=== PATIENT | male | born 1970 | race African-American/Black ===

== ENCOUNTER 2021-02-08 09:57 | Outpatient (CLI) | payer SELFPAY | END 2021-02-08 09:58 | disposition home or self-care (01) | LOC: CSHWCC 09:57 | PROVIDERS: ATTEND Nurse Practitioner Family | DX: S98.921 Partial traumatic amputation of right foot, level unspecified (principal); T81.89XD Other complications of procedures, not elsewhere classified, subsequent encounter; E11.621 Type 2 diabetes mellitus with foot ulcer; L97.509 Non-pressure chronic ulcer of other part of unspecified foot with unspecified severity; D59.9 Acquired hemolytic anemia, unspecified; G90.09 Other idiopathic peripheral autonomic neuropathy; M72.6 Necrotizing fasciitis; M86.172 Other acute osteomyelitis, left ankle and foot | CPT/HCPCS: 29581; 97605; 99213; G0463 ==

== ENCOUNTER 2021-02-12 08:13 | Outpatient (CLI) | payer SELFPAY | END 2021-02-12 08:14 | disposition home or self-care (01) | LOC: CSHWCC 08:13 | PROVIDERS: ATTEND Nurse Practitioner Family | DX: S98.921 Partial traumatic amputation of right foot, level unspecified (principal); T81.89XD Other complications of procedures, not elsewhere classified, subsequent encounter; E11.621 Type 2 diabetes mellitus with foot ulcer; L97.509 Non-pressure chronic ulcer of other part of unspecified foot with unspecified severity; R60.0 Localized edema; G90.09 Other idiopathic peripheral autonomic neuropathy; M72.6 Necrotizing fasciitis; M86.172 Other acute osteomyelitis, left ankle and foot | CPT/HCPCS: 11042; 29581; 99213; G0463 ==

== ENCOUNTER 2021-02-15 13:27 | Outpatient (CLI) | payer SELFPAY | END 2021-02-15 13:28 | disposition home or self-care (01) | LOC: CSHWCC 13:27 | PROVIDERS: ATTEND Nurse Practitioner Family | DX: T81.89XD Other complications of procedures, not elsewhere classified, subsequent encounter (principal); S98.921 Partial traumatic amputation of right foot, level unspecified; E11.621 Type 2 diabetes mellitus with foot ulcer; L97.509 Non-pressure chronic ulcer of other part of unspecified foot with unspecified severity; E11.69 Type 2 diabetes mellitus with other specified complication; M86.172 Other acute osteomyelitis, left ankle and foot; R60.0 Localized edema; D59.9 Acquired hemolytic anemia, unspecified; G90.09 Other idiopathic peripheral autonomic neuropathy | CPT/HCPCS: 29581; 99212; G0463 ==

== ENCOUNTER 2021-02-19 14:43 | Outpatient (CLI) | payer SELFPAY | END 2021-02-19 14:44 | disposition home or self-care (01) | LOC: CSHWCC 14:43 | PROVIDERS: ATTEND Nurse Practitioner Family | DX: S98.921 Partial traumatic amputation of right foot, level unspecified (principal); T81.89XD Other complications of procedures, not elsewhere classified, subsequent encounter; E11.621 Type 2 diabetes mellitus with foot ulcer; L97.509 Non-pressure chronic ulcer of other part of unspecified foot with unspecified severity; R60.0 Localized edema; D59.9 Acquired hemolytic anemia, unspecified; G90.9 Disorder of the autonomic nervous system, unspecified; M72.6 Necrotizing fasciitis; M86.172 Other acute osteomyelitis, left ankle and foot | CPT/HCPCS: 29581; 99213; G0463 ==

== ENCOUNTER 2021-02-26 11:53 | Outpatient (CLI) | payer SELFPAY | END 2021-02-26 11:54 | disposition home or self-care (01) | LOC: CSHWCC 11:53 | PROVIDERS: ATTEND Nurse Practitioner Family | DX: T81.89XD Other complications of procedures, not elsewhere classified, subsequent encounter (principal); S98.921 Partial traumatic amputation of right foot, level unspecified; E11.621 Type 2 diabetes mellitus with foot ulcer; L97.509 Non-pressure chronic ulcer of other part of unspecified foot with unspecified severity; R60.0 Localized edema; D59.9 Acquired hemolytic anemia, unspecified; G90.09 Other idiopathic peripheral autonomic neuropathy; M72.6 Necrotizing fasciitis; E11.69 Type 2 diabetes mellitus with other specified complication; M86.172 Other acute osteomyelitis, left ankle and foot | CPT/HCPCS: 29581; 99213; G0463 ==

== ENCOUNTER 2021-03-01 09:33 | Outpatient (CLI) | payer SELFPAY | END 2021-03-01 09:34 | disposition home or self-care (01) | LOC: CSHWCC 09:33 | PROVIDERS: ATTEND Nurse Practitioner Family | DX: T81.89XA Other complications of procedures, not elsewhere classified, initial encounter (principal); R60.0 Localized edema; D59.9 Acquired hemolytic anemia, unspecified; E11.621 Type 2 diabetes mellitus with foot ulcer; G90.09 Other idiopathic peripheral autonomic neuropathy; M72.6 Necrotizing fasciitis; M86.172 Other acute osteomyelitis, left ankle and foot; S98.921A Partial traumatic amputation of right foot, level unspecified, initial encounter | CPT/HCPCS: 29581; 97605; 99213; G0463 ==

== ENCOUNTER 2021-03-05 11:26 | Outpatient (CLI) | payer OTHER, SELFPAY | END 2021-03-05 11:27 | disposition home or self-care (01) | LOC: CSHWCC 11:26 | PROVIDERS: ATTEND Nurse Practitioner Family | DX: T81.89XD Other complications of procedures, not elsewhere classified, subsequent encounter (principal); S98.921 Partial traumatic amputation of right foot, level unspecified; E11.621 Type 2 diabetes mellitus with foot ulcer; L97.509 Non-pressure chronic ulcer of other part of unspecified foot with unspecified severity; E11.69 Type 2 diabetes mellitus with other specified complication; M86.172 Other acute osteomyelitis, left ankle and foot; M72.6 Necrotizing fasciitis; R60.0 Localized edema; D59.9 Acquired hemolytic anemia, unspecified; G90.09 Other idiopathic peripheral autonomic neuropathy | CPT/HCPCS: 29581; 97605; 99213; G0463 ==

== ENCOUNTER 2021-03-08 12:54 | Outpatient (CLI) | payer SELFPAY | END 2021-03-08 12:55 | disposition home or self-care (01) | LOC: CSHWCC 12:54 | PROVIDERS: ATTEND Nurse Practitioner Family | DX: T81.89XD Other complications of procedures, not elsewhere classified, subsequent encounter (principal); S98.921 Partial traumatic amputation of right foot, level unspecified; E11.621 Type 2 diabetes mellitus with foot ulcer; L97.509 Non-pressure chronic ulcer of other part of unspecified foot with unspecified severity; E11.69 Type 2 diabetes mellitus with other specified complication; M86.172 Other acute osteomyelitis, left ankle and foot; R60.0 Localized edema; D59.9 Acquired hemolytic anemia, unspecified; G90.09 Other idiopathic peripheral autonomic neuropathy; M72.6 Necrotizing fasciitis | CPT/HCPCS: 29581; 97605; 99213; G0463 ==

== ENCOUNTER 2021-03-12 11:26 | Outpatient (CLI) | payer SELFPAY | END 2021-03-12 11:27 | disposition home or self-care (01) | LOC: CSHWCC 11:26 | PROVIDERS: ATTEND Nurse Practitioner Family | DX: T81.89XD Other complications of procedures, not elsewhere classified, subsequent encounter (principal); S98.921 Partial traumatic amputation of right foot, level unspecified; E11.621 Type 2 diabetes mellitus with foot ulcer; L97.509 Non-pressure chronic ulcer of other part of unspecified foot with unspecified severity; R60.0 Localized edema; D59.9 Acquired hemolytic anemia, unspecified; G90.09 Other idiopathic peripheral autonomic neuropathy; E11.69 Type 2 diabetes mellitus with other specified complication; M86.172 Other acute osteomyelitis, left ankle and foot; M72.6 Necrotizing fasciitis | CPT/HCPCS: 29581; 97605; 99213; G0463 ==

== ENCOUNTER 2021-03-15 09:57 | Outpatient (CLI) | payer SELFPAY | END 2021-03-15 09:58 | disposition home or self-care (01) | LOC: CSHWCC 09:57 | PROVIDERS: ATTEND Nurse Practitioner Family | DX: S98.921 Partial traumatic amputation of right foot, level unspecified (principal); T81.89XD Other complications of procedures, not elsewhere classified, subsequent encounter; E11.621 Type 2 diabetes mellitus with foot ulcer; L97.509 Non-pressure chronic ulcer of other part of unspecified foot with unspecified severity; R60.0 Localized edema; D59.9 Acquired hemolytic anemia, unspecified; G90.09 Other idiopathic peripheral autonomic neuropathy; M72.6 Necrotizing fasciitis; M86.172 Other acute osteomyelitis, left ankle and foot | CPT/HCPCS: 29581; 99213; G0463 ==

== ENCOUNTER 2021-03-19 10:35 | Outpatient (CLI) | payer SELFPAY | END 2021-03-19 10:36 | disposition home or self-care (01) | LOC: CSHWCC 10:35 | PROVIDERS: ATTEND Nurse Practitioner Family | DX: S98.921 Partial traumatic amputation of right foot, level unspecified (principal); T81.89XD Other complications of procedures, not elsewhere classified, subsequent encounter; E11.621 Type 2 diabetes mellitus with foot ulcer; L97.509 Non-pressure chronic ulcer of other part of unspecified foot with unspecified severity; R60.0 Localized edema; G90.09 Other idiopathic peripheral autonomic neuropathy; M72.6 Necrotizing fasciitis | CPT/HCPCS: 29581; 99213; G0463 ==

== ENCOUNTER 2021-03-22 12:04 | Outpatient (CLI) | payer SELFPAY | END 2021-03-22 12:05 | disposition home or self-care (01) | LOC: CSHWCC 12:04 | PROVIDERS: ATTEND Nurse Practitioner Family | DX: T81.89XD Other complications of procedures, not elsewhere classified, subsequent encounter (principal); R60.0 Localized edema; D59.9 Acquired hemolytic anemia, unspecified; E11.621 Type 2 diabetes mellitus with foot ulcer; G90.09 Other idiopathic peripheral autonomic neuropathy; M72.6 Necrotizing fasciitis; M86.172 Other acute osteomyelitis, left ankle and foot; S98.921 Partial traumatic amputation of right foot, level unspecified | CPT/HCPCS: 29581; 99213; G0463 ==

== ENCOUNTER 2021-03-26 12:13 | Outpatient (CLI) | payer SELFPAY | END 2021-03-26 12:14 | disposition home or self-care (01) | LOC: CSHWCC 12:13 | PROVIDERS: ATTEND Nurse Practitioner Family | DX: T81.89XD Other complications of procedures, not elsewhere classified, subsequent encounter (principal); S98.921 Partial traumatic amputation of right foot, level unspecified; E11.621 Type 2 diabetes mellitus with foot ulcer; L97.509 Non-pressure chronic ulcer of other part of unspecified foot with unspecified severity; D59.9 Acquired hemolytic anemia, unspecified; G90.09 Other idiopathic peripheral autonomic neuropathy; M72.6 Necrotizing fasciitis; M86.172 Other acute osteomyelitis, left ankle and foot; R60.0 Localized edema | CPT/HCPCS: 99213; G0463 ==

== ENCOUNTER 2021-04-02 09:22 | Outpatient (CLI) | payer SELFPAY | END 2021-04-02 09:23 | disposition home or self-care (01) | LOC: CSHWCC 09:22 | PROVIDERS: ATTEND Nurse Practitioner Family | DX: T81.89XD Other complications of procedures, not elsewhere classified, subsequent encounter (principal); S98.921 Partial traumatic amputation of right foot, level unspecified; E11.621 Type 2 diabetes mellitus with foot ulcer; L97.509 Non-pressure chronic ulcer of other part of unspecified foot with unspecified severity; E11.69 Type 2 diabetes mellitus with other specified complication; M86.172 Other acute osteomyelitis, left ankle and foot; R60.0 Localized edema; D59.9 Acquired hemolytic anemia, unspecified; G90.09 Other idiopathic peripheral autonomic neuropathy; M72.6 Necrotizing fasciitis | CPT/HCPCS: 11042; 99213; G0463 ==

== ENCOUNTER 2021-04-12 09:08 | Outpatient (CLI) | payer SELFPAY | END 2021-04-12 09:09 | disposition home or self-care (01) | LOC: CSHWCC 09:08 | PROVIDERS: ATTEND Nurse Practitioner Family | DX: T81.89XD Other complications of procedures, not elsewhere classified, subsequent encounter (principal); S98.921 Partial traumatic amputation of right foot, level unspecified; E11.621 Type 2 diabetes mellitus with foot ulcer; L97.509 Non-pressure chronic ulcer of other part of unspecified foot with unspecified severity; E11.69 Type 2 diabetes mellitus with other specified complication; M86.172 Other acute osteomyelitis, left ankle and foot; R60.0 Localized edema; D59.9 Acquired hemolytic anemia, unspecified; G90.09 Other idiopathic peripheral autonomic neuropathy; M72.6 Necrotizing fasciitis ==

== ENCOUNTER 2025-10-10 12:34 | Outpatient (CLI) | payer BC, MEDICAID | END 2025-10-10 12:35 | disposition home or self-care (01) | LOC: CSHWCC 12:34 | PROVIDERS: ATTEND Nurse Practitioner Family | DX: E11.621 Type 2 diabetes mellitus with foot ulcer (principal); L97.522 Non-pressure chronic ulcer of other part of left foot with fat layer exposed; E11.40 Type 2 diabetes mellitus with diabetic neuropathy, unspecified | CPT/HCPCS: 97597; 99213; G0463 ==

== ENCOUNTER 2025-10-17 10:02 | Outpatient (CLI) | payer BC, MEDICAID | END 2025-10-17 10:03 | disposition home or self-care (01) | LOC: CSHWCC 10:02 | PROVIDERS: ATTEND Nurse Practitioner Family | DX: E11.621 Type 2 diabetes mellitus with foot ulcer (principal); L97.522 Non-pressure chronic ulcer of other part of left foot with fat layer exposed; E11.40 Type 2 diabetes mellitus with diabetic neuropathy, unspecified | CPT/HCPCS: 99213; G0463 ==

== ENCOUNTER 2025-10-31 10:26 | Outpatient (CLI) | payer BC, MEDICAID | END 2025-10-31 10:27 | disposition home or self-care (01) | LOC: CSHWCC 10:26 | PROVIDERS: ATTEND Nurse Practitioner Family | DX: Z09 Encounter for follow-up examination after completed treatment for conditions other than malignant neoplasm (principal); E11.40 Type 2 diabetes mellitus with diabetic neuropathy, unspecified; Z86.31 Personal history of diabetic foot ulcer | CPT/HCPCS: 99212; G0463 ==